=== PATIENT | male | born 1940 | race Caucasian/White ===

== ENCOUNTER 2024-07-10 10:56 | Emergency (ER) | payer MEDICARE, OTHER ==
[~2024-07-10] VITALS: Ht 181.6 cm; Wt 90.3 kg
[~2024-07-10 10:56] MED LIST: AMI200T PO; AMLO5TAB16 PO; BENA40TA90 PO; CEPH500C2 PO; DULO60CA65 PO; FLO0.4C PO; METF-1203 PO; METO-384 PO; OMEP20CA16 PO; SIMV-45 PO; TEST200V33 IM; WARF-65 PO; WARF2.5T82 PO
[2024-07-10 11:26] LABS: BASOPHILS # (AUTO) 0.1 X10'3 (0-0.2); BASOPHILS % (AUTO) 0.8 % (0-1); EOSINOPHILS # (AUTO) 0.2 X10'3 (0-0.9); EOSINOPHILS % (AUTO) 2.9 % (0-6); HEMATOCRIT 57.5 % (42.0-52.0); LYMPHOCYTES # (AUTO) 1.6 X10'3 (1.1-4.8); LYMPHOCYTES % (AUTO) 19.8 % (21-51); MEAN CORPUSCULAR HEMOGLOBIN 30.2 PG (27.0-31.0); MEAN CORPUSCULAR HGB CONC 32.7 g/dL (33.0-36.5); MEAN CORPUSCULAR VOLUME 92.5 FL (78-98); MEAN PLATELET VOLUME 8.2 FL (7.4-10.4); MONOCYTES % (AUTO) 12.8 % (2-12); NEUTROPHILS % (AUTO) 63.7 % (42-75); PLATELET COUNT 211 X10'3 (140-440); RED BLOOD COUNT 6.21 X10'6 (4.70-6.10); RED CELL DISTRIBUTION WIDTH 15.5 % (11.5-14.5); WHITE BLOOD COUNT 7.9 X10'3 (4.5-11.0)
[2024-07-10 11:28] LABS: HEMOGLOBIN 18.8 g/dl (14.0-17.9)
[2024-07-10 11:49] LABS: ALANINE AMINOTRANSFERASE 27 U/L (12-78); ALBUMIN 3.7 G/DL (3.4-5.0); ALBUMIN/GLOBULIN RATIO 0.8 (1.1-1.5); ALKALINE PHOSPHATASE 111 IU/L (46-116); ANION GAP 7 (8-16); ASPARTATE AMINO TRANSFERASE 21 U/L (10-37); BILIRUBIN,TOTAL 1.2 MG/DL (0.1-1.0); BLOOD UREA NITROGEN 16 MG/DL (7-18); BUN/CREATININE RATIO 14.7 (10.0-20.0); CALCIUM 8.6 MG/DL (8.5-10.1); CHLORIDE 100 MMOL/L (99-107); CREATININE 1.09 MG/DL (0.60-1.10); GLUCOSE 153 MG/DL (70-104); PRO BRAIN NATRIURETIC PEPTIDE 554 PG/ML (0-450); SODIUM 138 MMOL/L (135-145); TOTAL CARBON DIOXIDE 30.9 MMOL/L (24-32); TOTAL PROTEIN 8.2 G/DL (6.4-8.2); eCRCL 56 ML/MIN; eGFR 65 ML/MIN
[2024-07-10] MEDS: normal saline 1000ml 1,000 ML IV SCH (11:53)
[2024-07-10 12:16] LABS: APTT 46 SECONDS (22-32); PROTHROMBIN TIME 41.5 SECONDS (9.0-12.0)
[2024-07-10 12:45] LABS: INR 4.4 INR
[2024-07-10 15:28] VITALS: BP 162/105; PULSE 62; RESP 16; TEMP 97.9; O2SAT 98
== END 2024-07-10 15:27 | disposition home or self-care (01) ==
LOC: ER 10:56
DX: R07.89 Other chest pain (principal); D75.1 Secondary polycythemia; I48.91 Unspecified atrial fibrillation; Z95.0 Presence of cardiac pacemaker
CPT/HCPCS: 36415; 71045; 80053; 82668; 83880; 84484; 85025; 85610; 85730; 93005; 96360; 96361; 99285; J7030